=== PATIENT | male | born 1975 | race Caucasian/White ===

== ENCOUNTER → 2024-03-22 09:13 | Outpatient (CLI) | payer OTHER, SELFPAY ==
--- NOTE | 2024-03-22 09:16 | DI.RAD.S_ITS ---
PROCEDURE: XR LUMBAR SPINE MIN 4V INDICATIONS: BACK PAIN TECHNIQUE: 5 views of the lumbar spine were acquired, including bilateral oblique views. COMPARISON: None. FINDINGS: Bones: Very small ribs at T12. Partial sacralization of left L5 transverse process. Five nonrib-bearing vertebrae are present. 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 No vertebral body compression fractures. No suspicious bony lesions. Soft tissues: Overlying bowel gas pattern is normal. No suspicious soft tissue calcifications. Oblique images: No pars defects. IMPRESSION: No acute bony abnormality. No significant spondylosis or spondylolisthesis. Dictated by: Tiffany Astorga M.D. on 03/22/2024 at 9:35 Approved by: Tiffany Astorga M.D. on 03/22/2024 at 9:38
== END ==
PROVIDERS: Referring Provider Physical Medicine & Rehabilitation; Visit Provider Physical Medicine & Rehabilitation
DX: M54.9 Dorsalgia, unspecified (principal)
CPT/HCPCS: 72110

== ENCOUNTER → 2024-03-23 18:34 | Outpatient (CLI) | payer OTHER, SELFPAY ==
--- NOTE | 2024-03-23 18:36 | DI.MRI.S_ITS ---
PROCEDURE: MR LUMBAR SPINE WO CON INDICATIONS: Lumbar radiculopathy TECHNIQUE: Noncontrast sagittal T1 spin echo and T2 fast echo, sagittal STIR, and T2 fast spin echo through the lumbar spine. In cases with scoliosis, additional coronal T2 fast spin echo may be performed. COMPARISON: [facility], CR, XR LUMBAR SPINE MIN 4V, 03/22/2024, 9:24. FINDINGS: Image quality: Excellent. Alignment and Curvature: There is normal bony alignment. Bone Marrow: Marrow is of normal overall signal. No acute vertebral body compression fractures. Spinal Cord: Conus medullaris terminates at the T12-L1 level. Visualized cord demonstrates normal signal and size. Paraspinous Soft Tissues: No paravertebral masses. T12-L1: Normal appearance. L1-L2: No significant abnormality is seen. L2-L3: The disc height and disk signal are relatively well-preserved. Mild generalized disc bulge is seen. No significant neural foraminal or central canal narrowing can be seen. L3-L4: The disc height and disk signal are relatively well-preserved. Mild to moderate disc bulge is seen, which is slightly eccentric to the right. Mild facet joint hypertrophy is seen. There is moderate left-sided and [id number] right-sided neural foraminal narrowing. No significant central canal narrowing is seen. L4-L5: The disc height and disk signal are relatively well-preserved. Moderate disc bulge is seen, with a central/left disc extrusion, with mild superior migration of the disc material. There is a focal annular fissure seen posteriorly. Moderate facet joint hypertrophy is seen. There is at least moderate right-sided and moderate to severe left-sided neural foraminal narrowing. Moderate central canal narrowing is seen. Mild mass effect can be seen upon the transiting nerve roots, including the left L5 nerve root. L5-S1: The disc height and disk signal are well-preserved. Mild generalized disc bulge is seen. Mild facet joint hypertrophy is seen. There is mild right-sided and no left-sided neural foraminal narrowing. No significant central canal narrowing is seen. IMPRESSION: Focal L4-L5 degenerative change is seen, with a central/left disc extrusion. Dictated by: Oscar Calvo M.D. on 03/24/2024 at 9:51 Approved by: Oscar Calvo M.D. on 03/24/2024 at 9:56
== END ==
PROVIDERS: PCP Family Medicine; Referring Provider Physical Medicine & Rehabilitation; Visit Provider Physical Medicine & Rehabilitation
DX: M47.26 Other spondylosis with radiculopathy, lumbar region (principal); M51.17 Intervertebral disc disorders with radiculopathy, lumbosacral region
CPT/HCPCS: 72148

== ENCOUNTER 2024-05-09 14:59 | Outpatient (CLI) | payer OTHER, SELFPAY ==
[2024-05-09] VITALS (8 sets, daily range): BP systolic 129–147; BP diastolic 79–86; PULSE 89–96; RESP 12–18; TEMP 37.6; O2SAT 93–100
[2024-05-09] MEDS: MIDAZOLAM 2 MG/2 ML VIAL IV (16:00)
[2024-05-09] MEDS: BUPIVACAINE 0.25% (PF) VIAL 2 ML INJ (16:04)
[2024-05-09] MEDS: BETAMETHASONE 30 MG/5 ML MDV 12 MG INJ (16:04)
[2024-05-09] MEDS: DEXAMETHASONE 10 MG/ML VIAL INJ (16:05)
[2024-05-09] MEDS: iopamidoL 15 ML VIAL 3 ML INJ (16:05)
[2024-05-09] MEDS: BETAMETHASONE 30 MG/5 ML MDV 6 MG INJ (16:16)
--- NOTE | 2024-05-09 16:20 | PM.PROC.IR.1 ---
Date/Time/Diagnoses Date of procedure: 05/09/24 Time of procedure: 16:20 Pre-procedure diagnosis: 1. FORAMINAL STENOSIS WITH LE SYMPTOMS Post-procedure diagnosis: same Procedure Notes Procedure: 1. FLUOROSCOPICALLY GUIDED CONTRAST CONTROLLED TRANSFORAMINAL EPIDURAL STEROID INJECTION - LEFT L4/5 Indications: Kurtis is referred by Dr. Colmenares for treatment of Foraminal Stenosis with Left LE Symptoms Physician: Justus Millan Total Fluoroscopy time (seconds): 11 Total sedation minutes: 17 Complications: none Procedure in detail & Post-procedure care: FINDINGS Foraminal Nerve Root Compression secondary to disc disease and facet hypertrophy DESCRIPTION OF PROCEDURE Following review of allergy and review of potential side effects and complications, including, but not necessarily limited to, infection, allergic reaction, local tissue breakdown, stroke, temporary or permanent nerve injury, paralysis, and possible , the patient indicated that the patient understood and agreed to proceed. An informed consent document was signed by the patient, witnessed by a nurse, and placed in the patient's chart. Additionally, other treatment options including medications, modalities, and physical therapy were reviewed with the patient. After review of previous anaesthesic history and IV conscious sedation the patient was deemed safe to proceed with today?s procedure with IV conscious sedation as ASA class II designation. Safety time-out was performed to confirm patient ID, procedure to be performed and site of procedure. IV sedation was accomplished with a combination of 2mg of Versed administered by the RN after DO order, titrated to patient comfort during the course of the procedure while the patient remained responsive to all verbal commands In the prone position following sterile prep and drape of the lumbar region, the left L4/5 posterior neuroforamen was identified fluoroscopically. The skin was anesthetized via a 25-gauge 1.5-inch needle with 1% lidocaine solution. At this point, a 25-gauge 3.5-inch spinal needle was atraumatically introduced and advanced under fluoroscopic guidance through the posterior left L4/5 neuroforamen to approximately the anterior aspect of the canal. Depth was confirmed on lateral view. Following negative aspiration, injection of approximately 1.5 cc of Isovue 200 under live fluoroscopy in the AP view confirmed excellent flow along the nerve root, into the epidural space without vascular or intrathecal uptake observed Radiological data, including multiple fluoroscopic views of the lumbosacral spine, reveal a spinal needle at the left L4/5 posterior neuroforamen. Subsequent views show flow of contrast material flowing superiorly and inferiorly along the nerve root confirming epidural flow. Subsequently, a test dose of 1.5 cc of 1% lidocaine solution was administered and patient was observed for two minutes for signs or symptoms of complications, including abdominal pain, shortness of breath, bilateral upper or lower extremity weakness, nausea and vomiting, prior to steroid injection. At this point, a total of 2cc or 10mg of dexamethasone and 6mg of betamethasone was injected without incident. The procedure tolerated the procedure well without signs or symptoms of complications prior to transfer to the recovery area continued monitoring without incident. The patient was then transferred to the recovery area where they were observed for an appropriate time after the injection. The patient reported a VAS score of 7 prior to the procedure and a post-procedure VAS of 0. POST OP INSTRUCTIONS The patient was provided a Pain Log to continue to record their response to the target-specific procedure prior to follow-up visit with their referring physician. Additionally, specific post-injection care instructions and a contact number to our office were provided if concerns arise regarding possible complications associated with the procedure are suspected.
--- NOTE | 2024-05-09 16:27 | P.PCN_ITS ---
Date/Time/Diagnoses Date of procedure: 05/09/24 Time of procedure: 16:27 Pre-procedure diagnosis: 1. FORAMINAL STENOSIS WITH LE SYMPTOMS Post-procedure diagnosis: same Procedure Notes Procedure: 1. FLUOROSCOPICALLY GUIDED CONTRAST CONTROLLED TRANSFORAMINAL EPIDURAL STEROID INJECTION - LEFT L4/5 Indications: Kurtis is referred by Dr. Colmenares for treatment of Foraminal Stenosis with Left LE Symptoms Physician: Justus Millan Total Fluoroscopy time (seconds): 11 Total sedation minutes: 17 Complications: none Procedure in detail & Post-procedure care: FINDINGS Foraminal Nerve Root Compression secondary to disc disease and facet hypertrophy DESCRIPTION OF PROCEDURE Following review of allergy and review of potential side effects and complications, including, but not necessarily limited to, infection, allergic reaction, local tissue breakdown, stroke, temporary or permanent nerve injury, paralysis, and possible , the patient indicated that the patient understood and agreed to proceed. An informed consent document was signed by the patient, witnessed by a nurse, and placed in the patient's chart. Additionally, other treatment options including medications, modalities, and physical therapy were reviewed with the patient. After review of previous anaesthesic history and IV conscious sedation the patient was deemed safe to proceed with today?s procedure with IV conscious sedation as ASA class II designation. Safety time-out was performed to confirm patient ID, procedure to be performed and site of procedure. IV sedation was accomplished with a combination of 2mg of Versed administered by the RN after DO order, titrated to patient comfort during the course of the procedure while the patient remained responsive to all verbal commands In the prone position following sterile prep and drape of the lumbar region, the left L4/5 posterior neuroforamen was identified fluoroscopically. The skin was anesthetized via a 25-gauge 1.5-inch needle with 1% lidocaine solution. At this point, a 25-gauge 3.5-inch spinal needle was atraumatically introduced and advanced under fluoroscopic guidance through the posterior left L4/5 neuroforamen to approximately the anterior aspect of the canal. Depth was confirmed on lateral view. Following negative aspiration, injection of approximately 1.5 cc of Isovue 200 under live fluoroscopy in the AP view confirmed excellent flow along the nerve root, into the epidural space without vascular or intrathecal uptake observed Radiological data, including multiple fluoroscopic views of the lumbosacral spine, reveal a spinal needle at the left L4/5 posterior neuroforamen. Subsequent views show flow of contrast material flowing superiorly and inferiorly along the nerve root confirming epidural flow. Subsequently, a test dose of 1.5 cc of 1% lidocaine solution was administered and patient was observed for two minutes for signs or symptoms of complications, including abdominal pain, shortness of breath, bilateral upper or lower extremity weakness, nausea and vomiting, prior to steroid injection. At this point, a total of 4cc or 10mg of dexamethasone and 18mg of betamethasone was injected without incident. The procedure tolerated the procedure well without signs or symptoms of complications prior to transfer to the recovery area continued monitoring without incident. The patient was then transferred to the recovery area where they were observed for an appropriate time after the injection. The patient reported a VAS score of 7 prior to the procedure and a post- procedure VAS of 0. POST OP INSTRUCTIONS The patient was provided a Pain Log to continue to record their response to the target-specific procedure prior to follow-up visit with their referring physician. Additionally, specific post-injection care instructions and a contact number to our office were provided if concerns arise regarding possible complications associated with the procedure are suspected.
== END 2024-05-09 16:37 | disposition home or self-care (01) ==
LOC: RAD 15:00
PROVIDERS: PCP Family Medicine; Referring Provider Physical Medicine & Rehabilitation; Visit Provider Physical Medicine & Rehabilitation
DX: M48.061 Spinal stenosis, lumbar region without neurogenic claudication (principal); M51.16 Intervertebral disc disorders with radiculopathy, lumbar region; M47.26 Other spondylosis with radiculopathy, lumbar region
CPT/HCPCS: 64483; 99152; J0702; J1100; J2250; J3490